=== PATIENT | female | born 1970 | race Caucasian/White ===

== ENCOUNTER 2021-12-23 08:07 | Emergency (ER) | payer MEDICAID ==
[~2021-12-23] VITALS: Ht 154.9 cm; Wt 79.4 kg
[2021-12-23 08:11] VITALS: BP 151/101
--- NOTE | 2021-12-23 08:23 | NUR ---
PT AMB TO BED 12
--- NOTE | 2021-12-23 08:56 | NUR ---
51 y/o female bib self from home, c/o heavy vaginal bleeding, states she has been having dark blood clots for 2 days. pt also states he has been having rlq abd pain and perales that started last night. denies dysuria, urinary retenion or frequency, n/v/d. pt states she tested positive for covid early october and negative one week ago. lmp: 12/21/21 pmh: cardiac hx, glaucoma, anemia, vitamin d deficiency nka med: denies
--- NOTE | 2021-12-23 09:27 | NUR ---
kayli phleb at bedside.
[2021-12-23 09:54] LABS: BASOPHILS # (AUTO) 0.1 K/uL (0.00-0.22); BASOPHILS % (AUTO) 1.4 % (0.0-2.0); EOSINOPHILS % (AUTO) 0.6 % (0.0-4.0); HEMATOCRIT 35.7 % (36-48); HEMOGLOBIN 11.6 g/dL (12.0-16.0); LYMPHOCYTES # (AUTO) 1.3 K/uL (2.5-16.5); LYMPHOCYTES % (AUTO) 34.3 % (20.5-51.1); MEAN CORPUSCULAR HEMOGLOBIN 26 pg (27-31); MEAN CORPUSCULAR HGB CONC 33 g/dL (33-37); MEAN CORPUSCULAR VOLUME 78.9 fL (80-94); MONOCYTES # (AUTO) 0.3 K/uL (0.8-1.0); NEUTROPHILS # (AUTO) 2.2 K/uL (1.8-7.7); NEUTROPHILS % (AUTO) 56.7 % (42.2-75.2); PLATELET COUNT (AUTO) 227 K/uL (140-450); RED BLOOD CELL COUNT(AUTO) 4.52 MIL/uL (4.20-5.40); RED CELL DISTRIBUTION WIDTH 14.8 % (11.6-13.7); WHITE BLOOD COUNT (AUTO) 3.9 K/uL (4.8-10.8)
[2021-12-23 10:07] LABS: ANION GAP 12.3 (8-16); CARBON DIOXIDE 25.6 mmol/L (21-32); CREATININE 0.6 mg/dL (0.6-1.3); POTASSIUM 3.9 mmol/L (3.5-5.1)
[2021-12-23] MEDS ORDERED: MEDR10TA PO (10:30)
[2021-12-23] MEDS ORDERED: CIPR500T4 PO (10:30)
--- NOTE | 2021-12-23 10:50 | NUR ---
Patient discharged with v/s stable. Written and verbal after care instructions given and explained about uti, and uterine bleeding. Patient alert, oriented and verbalized understanding of instructions. Ambulatory with steady gait. All questions addressed prior to discharge. ID band removed. Patient advised to follow up with PMD. Rx of cipro, and provera given. Patient educated on indication of medication including possible reaction and side effects. Opportunity to ask questions provided and answered.
[2021-12-23 10:51] VITALS: BP 130/68
== END 2021-12-23 10:50 | disposition home or self-care (01) ==
LOC: MED 08:07
DX: N39.0 Urinary tract infection, site not specified (principal); N93.8 Other specified abnormal uterine and vaginal bleeding
CPT/HCPCS: 36415; 80048; 81002; 81025; 85025; 99283